=== PATIENT | female | born 1985 | race Caucasian/White ===

== ENCOUNTER 2021-12-03 09:17 | Emergency (ER) | payer BC ==
[~2021-12-03 09:17] MED LIST: AMOXICILLIN500 M1 OR; FLONASE NASAL50 MCG; MUCINEX600 MG PO; NAPROSYN500 MG PO; PENICILLN VK500 M1 OR; ULTRAM50 M1 PO; ULTRAM50 MG OR
== END 2021-12-03 09:40 | disposition left against medical advice (07) | DRG 951 ==
LOC: ED 09:17 → LWOBS 09:39
DX: Z53.21 Procedure and treatment not carried out due to patient leaving prior to being seen by health care provider (principal)